=== PATIENT | male | born 1985 | race Caucasian/White ===

== ENCOUNTER 2017-12-20 17:01 | Inpatient (IN) | payer OTHER ==
[~2017-12-20] VITALS: Ht 170.2 cm; Wt 95.5 kg
[2017-12-20 17:31] LABS: HEMATOCRIT 41.7 % (38.0-50.0); HEMOGLOBIN 14.7 G/DL (12.5-16.6); MCHC 35.3 G/DL (30.0-36.0); MCV 90.8 FL (86-99); PLATELET COUNT 244 K/uL (156-360); RBC DIS.WIDTH-CV 12.5 % (11.8-14.6); RBC DIS.WIDTH-SD 41.9 % (39-53); RED BLOOD COUNT 4.59 M/uL (4.00-5.50); WHITE BLOOD COUNT 9.4 K/uL (4.1-10.2)
[2017-12-20 17:35] LABS: CHLORIDE 107 mEq/L (99-109); POTASSIUM 4.1 mEq/L (3.7-5.4); SODIUM 143 mEq/L (136-147)
[2017-12-20 17:37] LABS: GLUCOSE 107 mg/dL (70-99)
[2017-12-20 17:40] LABS: SERUM ETHYL ALCOHOL < 10 mg/dL
[2017-12-20 17:41] LABS: CREATININE 0.8 mg/dL (0.6-1.3)
[2017-12-20 17:42] LABS: UREA NITROGEN (BUN) 11 mg/dL (9-23)
[2017-12-20 17:44] LABS: GFR ESTIMATE (CALCULATED) > 59 mL/min/ (58.99-99999)
[2017-12-20 18:29] LABS: AMPHETAMINE NEGATIVE (500 ng/mL); BARBITURATES NEGATIVE (200 ng/mL); BENZODIAZEPINES NEGATIVE (150 ng/mL); BUPRENORPHINE NEGATIVE (10 ng/mL); COCAINE NEGATIVE (150 ng/mL); METHADONE NEGATIVE (200 ng/mL); METHAMPHETAMINE NEGATIVE (500 ng/mL); OPIATES (MORPHINE) NEGATIVE (100 ng/mL); OXYCODONE NEGATIVE (100 ng/mL); PHENCYCLIDINE NEGATIVE (25 ng/mL); PROPOXYPHENE NEGATIVE (300 ng/mL); THC CANNABINOIDS NEGATIVE (50 ng/mL); TRICYCLIC ANTIDEPRESSANTS NEGATIVE (300 ng/mL)
[2017-12-20] MEDS ORDERED: CHLORDIAZEPOX-1 EACH PO (21:48)
[2017-12-20] MEDS ORDERED: VISTARIL25 MG PO (21:49)
[2017-12-20 22:25] VITALS: BP 149/87
[2017-12-21 07:34] VITALS: BP 142/80
[2017-12-21 16:00] VITALS: BP 142/69
[2017-12-22 07:29] VITALS: BP 123/66
[2017-12-22 15:31] VITALS: BP 137/76
[2017-12-23 08:42] VITALS: BP 142/93
[2017-12-23] MEDS ORDERED: ZOLOFT50 MG PO (09:13)
[2017-12-23] MEDS ORDERED: TRAZODONE HCL100 MG PO (09:13)
== END 2017-12-23 13:02 | disposition home or self-care (01) | DRG 882 ==
LOC: EME 17:01 → 1WEST 19:27 → EDOF 19:27 → 1WEST 22:06 → ENRESERV 22:06 → 1WEST 12-23 13:02
PROVIDERS: Emergency Medicine
DX: F43.25 Adjustment disorder with mixed disturbance of emotions and conduct (principal); R45.851 Suicidal ideations; F90.9 Attention-deficit hyperactivity disorder, unspecified type; G24.01 Drug induced subacute dyskinesia
CPT/HCPCS: 80048; 85027; 90837; 97150 GO; 97165 GO; 99281; 99285; G0480